=== PATIENT | female | born 1940 | race Caucasian/White ===

== ENCOUNTER → 2017-05-01 | Outpatient (CLI) | payer OTHER | END | disposition home or self-care (01) | LOC: C.PAPS 15:39 | PROVIDERS: ATTEND Obstetrics & Gynecology | DX: Z12.4 Encounter for screening for malignant neoplasm of cervix (principal) ==

== ENCOUNTER 2020-09-29 06:57 | Observation (INO) ==
--- NOTE | 2020-09-16 08:30 | PAT Medication Instructions ---
Medication Instructions Date of Service September 16, 2020 Home Medications estradiol [Vagifem] 10 mcg VAGINAL UD levothyroxine 75 mcg PO QAM lisinopril-hydrochlorothiazide 1 tab PO QAM naproxen sodium [Aleve] 220 mg PO BID PRN ASK your surgeon for instructions estradiol [Vagifem] 10 mcg VAGINAL UD naproxen sodium [Aleve] 220 mg PO BID PRN DO NOT take the morning of surgery lisinopril-hydrochlorothiazide 1 tab PO QAM Take morning of surgery With a small sip of water, OTHERWISE NOTHING TO EAT OR DRINK AFTER MIDNIGHT: levothyroxine 75 mcg PO QAM Other Notes If you have any questions please call us at [phone] or [phone] or [phone] or [phone]
--- NOTE | 2020-09-16 15:02 | Anesthesiology Consultation ---
Date of Service September 16, 2020 Assessment & Plan (1) Encounter for pre-operative examination: Per assessment on 09/16: Travel screen negative. No known COVID-19 positive conta cts or current COVID-19 related symptoms. Surgeon arranging preop COVID testing. Awaiting results. Chart Review Chart Review: Acceptable Risk for Surgery (pending surgeon-ordered PCP clearance) and Patient seen in Pre Admission Testing Teaching & Discussion Pre-Anesthesia Teaching/Discussion Notes: Instructed NPO after midnight before surgery,except medications with 15 cc of water. Medication instructions provided according to the PAT guidelines. History Surgery Operation Date: 09/29/20 10:55 Proposed Procedures p Right Total Knee Arthroplasty - Tee Jacob MD Height/Weight Height: 5 ft 3 in Weight: 75.6 kg Allergies Allergy/AdvReac Type Severity Reaction Status Date / Time naproxen Allergy Mild Rash Verified 09/15/20 12:32 WASP Allergy Severe Anaphylaxis Uncoded 09/15/20 12:32 Medications Home Medications Medication Instructions Recorded Confirmed Last Taken estradiol [Vagifem] 10 mcg VAGINAL UD 09/15/20 09/15/20 Unknown levothyroxine 75 mcg PO QAM 09/15/20 09/15/20 Unknown lisinopril-hydrochlorothiazide 1 tab PO QAM 09/15/20 09/15/20 Unknown naproxen sodium [Aleve] 220 mg PO BID PRN 09/15/20 09/15/20 Unknown Past Medical History Medical History Carpal tunnel syndrome R > L (nighttime splint) CKD (chronic kidney disease) creatinine baseline 1.3 per PCP records Fatty liver History of benign ovarian tumor History of skin cancer Facial Hx of endometriosis Hx of gout Hypertension Hypothyroidism Osteoarthritis Prediabetes Exercise / Class Metabolic Activity II 4-5 Yardwork/Stairs/Walk up hill Past Family History Family History Other No family history of adverse response to anesthesia Past Surgical History Surgical History Fusion of spine Lumbar H/O toe surgery Great right toe joint replacement (+ hardware) H/O total hysterectomy History of cystoscopy History of flexible sigmoidoscopy History of tonsillectomy and adenoidectomy [place] teeth removed Past Anesthesia History No Hx of Anesthesia Complications and No Family Hx of Anesthesia Complications History of PONV No Hx of PONV and No Hx of Motion Sickness Social History Smoking Status: Never smoker Hx Alcohol Use: No substance use type: does not use Review of Systems Patient denies chest pain, shortness of breath, dyspnea on exertion, joint pain, reflux, cough, wheezing, palpitations. Physical Exam Vital Signs VITALS BP 133/81 P 59 TEMP 98.3 SP02 97%RA RESP 16 PHYSICAL Mildly decreased c-spine range of motion. Full TMJ range of motion. TMD 3 finger breaths Mallampati Score 1 Dentition: intact, +crown (side), lower left bridge Lungs: clear throughout to auscultation Cardiac: regular rate and rhythm, no murmurs noted Spine: normal Carotid arteries: negative bruit Extremities: no edema Testing Laboratory Results 09/16/20 15:10 09/16/20 15:10 PT 10.1 Seconds (9.0-12.0) 09/16/20 15:10 INR 1.0 (0.9-1.1) 09/16/20 15:10 APTT 24.0 Seconds (21.0-31.0) 09/16/20 15:10 Hemoglobin A1c 6.0 % (4.5-5.6) H 09/16/20 15:10 Urine Color Yellow 09/16/20 15:10 Urine Appearance Clear (Clear) 09/16/20 15:10 Urine pH 6.0 (4.5-7.5) 09/16/20 15:10 Ur Specific [place] 1.016 (1.000-1.030) 09/16/20 15:10 Urine Protein Negative (Negative) 09/16/20 15:10 Urine Glucose (UA) Negative (Negative) 09/16/20 15:10 Urine Ketones Negative (Negative) 09/16/20 15:10 Urine Nitrite Negative (Negative) 09/16/20 15:10 Ur Leukocyte Esterase Trace (Negative) H 09/16/20 15:10 Urine WBC (Auto) 5-10 /hpf (0-5) H 09/16/20 15:10 Urine RBC (Auto) 10-30 /hpf (0-4) H 09/16/20 15:10 U Hyaline Cast (Auto) 1-5 /lpf (0-5) 09/16/20 15:10 U Epithel Cells (Auto) >30 /lpf (0-5) H 09/16/20 15:10 Urine Bacteria (Auto) 1+ (Negative) H 09/16/20 15:10 Blood Type AB Negative 09/16/20 15:10 Antibody Screen NEGATIVE 09/16/20 15:10 09/16/20 GFR 36.5 *Per verbal from Dr. Tinoco, known hx of CKD with baseline creatinine 1.3 per review of most recent labs.* Electrocardiogram Date: 09/16/20 Findings: + SB @ (58) Chest X-Ray Date: 09/16/20 FINDINGS: No pneumothorax. No pleural effusions. The lungs are clear. The heart is normal in size. Mild calcified plaque within the aortic knob. Chronic right AC joint separation. IMPRESSION: No acute process.
[2020-09-16 15:50] LABS: Basophils # (auto) 0.04 K/uL (0-0.2); Basophils % (auto) 0.5 %; Eosinophils # (auto) 0.42 K/uL (0-0.5); Eosinophils % (auto) 5.5 %; Hematocrit (blood only) 38.9 % (37-47); Hemoglobin 13.8 g/dL (12.0-16.0); Immature Granulocytes # (auto) 0.01 K/uL (0.00-0.02); Immature Granulocytes % (auto) 0.1 %; Lymphocytes # (auto) 2.05 K/uL (1.2-3.4); Mean Corpuscular Hemoglobin 32.9 pg (25-34); Mean Corpuscular Hgb Conc 35.5 g/dL (32-36); Mean Corpuscular Volume 92.6 fL (80-100); Mean Platelet Volume 9.6 fL (7.4-10.4); Monocytes # (auto) 0.84 K/uL (0.11-0.59); Monocytes % (auto) 11.1 %; Neutrophils # (auto) 4.22 K/uL (1.4-6.5); Neutrophils % (auto) 55.8 %; Platelet Count 351 K/uL (130-400); RDW Coefficient of Variation 13.1 % (11.5-14.5); RDW Standard Deviation 44.5 fL (36.4-46.3); White Blood Count 7.58 K/uL (4.8-10.8)
--- NOTE | 2020-09-16 15:51 | XRay Report ---
XR chest Pre-admission PA/Lat HISTORY: Preop. COMPARISON: None. FINDINGS: No pneumothorax. No pleural effusions. The lungs are clear. The heart is normal in size. Mi ld calcified plaque within the aortic knob. Chronic right AC joint separation. IMPRESSION: No acute process. ACT 112: Negative or not required by law. Electronically signed by: Danny Levine M.D. 09/16/2020 3:50 PM
[2020-09-16 16:01] LABS: Partial Thromboplastin Ratio 0.9; Prothrombin Time 10.1 Seconds (9.0-12.0)
[2020-09-16 16:02] LABS: Appearance Urine Clear (Clear); Bacteria Urine Automated 1+ (Negative); Bilirubin Urine Negative (Negative); Blood Urine 1+ (Negative); Color Urine Yellow; Epithelial Cell Urine Auto >30 /lpf (0-5); Glucose Urine UA Negative (Negative); Ketones Urine Negative (Negative); Leukocyte Esterase Urine Trace (Negative); Nitrite Urine Negative (Negative); Protein Urine Negative (Negative); Specific Gravity Urine 1.016 (1.000-1.030); Urobilinogen Urine Negative (Negative)
[2020-09-16 16:07] LABS: BUN Creatinine Ratio 23.9 (10-20); Calcium 9.7 mg/dl (8.5-10.1); Creatinine Clr Calc Pharmacy 32.7 ml/min; Est GFR (African American) 42.3; Est GFR (Non-African American) 36.5; Potassium 3.7 mmol/L (3.5-5.1)
--- NOTE | 2020-09-16 16:58 | Electrocardiogram Report ---
Test Reason : Blood Pressure : / mmHG Vent. Rate : 058 BPM Atrial Rate : 058 BPM P-R Int : 186 ms QRS Dur : 084 ms QT Int : 448 ms P-R-T Axes : 030 055 061 degrees QTc Int : 439 ms Sinus bradycardia Otherwise normal ECG No previous ECGs available Confirmed by Angel Horn ([id number]) on 09/16/2020 4:58:41 PM Referred By: Tee Jacob Confirmed By:Saud Horn
[2020-09-17 07:46] LABS: Estimated Average Glucose 126 mg/dl
--- NOTE | 2020-09-23 17:08 | History & Physical Report ---
Date of Service September 23, 2020 Assessment & Plan (1) Right knee DJD: Postoperative prescriptions for Percocet and Coumadin will be provided at discharge from the hospital. Anticipate discharge to home with home health services. Preoperative lab work, EKG, and chest x-ray have been ordered. Medical clearance has been requested from her PCP Dr. Tinoco. The patient is aware of the COVID-19 risks associated with surgery. She is currently asymptomatic of any COVID-19 symptoms. She will obtain nasal swab testing 1 week prior to surgery. PDMP was checked, and there are no concerning findings. The patient does have access to a cane and walker already. Followup appointment has been made for staple removal on 10/14/2020 at 1:30 p.m. History of Present Illness Chief Complaint: Right knee pain Primary Care Provider: Chivo Tinoco This 80-year-old female presents for her preoperative history and physical. She is scheduled to undergo a right knee total knee arthroplasty on 09/29/2020. The patient has a longstanding history of bilateral knee pain, right greater than left. No specific trauma. Pain is worse with weightbearing. It is affecting her ADLs. She has used oral anti-inflammatories as well as viscosupplementation injection and activity modification without lasting improvement. She does get night pain. Denies any catching or locking. No buckling. No numbness or tingling. Occasional mild knee effusions. She notes mild loss of motion. Allergies Allergy/AdvReac Type Severity Reaction Status Date / Time naproxen Allergy Mild Rash Verified 09/15/20 12:32 WASP Allergy Severe Anaphylaxis Uncoded 09/15/20 12:32 Home Medications Medication Instructions Recorded Confirmed Type estradiol [Vagifem] 10 mcg VAGINAL UD 09/15/20 09/15/20 History levothyroxine 75 mcg PO QAM 09/15/20 09/15/20 History lisinopril-hydrochlorothiazide 1 tab PO QAM 09/15/20 09/15/20 History naproxen sodium [Aleve] 220 mg PO BID PRN 09/15/20 09/15/20 History Past Med/Surg History Medical History Carpal tunnel syndrome R > L (nighttime splint) CKD (chronic kidney disease) creatinine baseline 1.3 per PCP records Fatty liver History of benign ovarian tumor History of skin cancer Facial Hx of endometriosis Hx of gout Hypertension Hypothyroidism Osteoarthritis Prediabetes Surgical History Fusion of spine Lumbar H/O toe surgery Great right toe joint replacement (+ hardware) H/O total hysterectomy History of cystoscopy History of flexible sigmoidoscopy History of tonsillectomy and adenoidectomy [place] teeth removed Family History (Updated 09/23/20 @ 17:10 by Sandeep Loo PA-C) Other Cancer Heart disease No family history of adverse response to anesthesia Stroke Social History (Updated 09/23/20 @ 17:10 by Sandeep Loo PA-C) Smoking Status: Never smoker Second Hand Exposure: No; Hx Alcohol Use: No Preferred Language: Slovak Product Support Sales Representative Required: No Beliefs That Will Affect Care: None Current Living Situation: Spouse current occupational status: retired Feels Safe at Home: Yes Assistive Devices: Cane and Glasses Review of Systems Review of Systems: All systems reviewed & are unremarkable except as noted in HPI & below A total of 10 systems were reviewed. Physical Exam Physical Exam: Vitals: Height 5 feet 3 inches, weight 75.6kg. General: Well-developed, well-nourished, elderly, white female in no acute distress. Sitting on a bed. Alert and oriented. Skin: Warm and dry with good turgor. No rashes or lesions. No ecchymosis or erythema. No intra-articular effusion today. HEENT: Normocephalic, atraumatic. Eyes: PERRLA, EOMI. Nares patent bilaterally without turbinate enlargement. Oropharynx exam deferred due to COVID precautions. Heart: RRR, no MGR. Lungs: Clear to auscultation bilaterally, no crackles, rhonchi or wheezing, good air movement. Abdomen: Bowel sounds present x4, soft, nontender. No organomegaly. No masses. Musculoskeletal: Right knee evaluation reveals a varus alignment. She lacks about 3-4 degrees of terminal extension. Flexion to 100 degrees. Strength is 5/5 with fair quad tone. Stable collateral ligaments. No defect in the patellar tendon or quadriceps tendon. She has discomfort with palpation over the medial joint line of the right knee. No pain laterally at this time. Ambulates with a slightly antalgic gait. Neurologic: Gross sensation is intact across both lower extremities by soft touch. Peripheral pulses are 2+. Results & Data Results & Data ([facility]) Diagnostic Findings Radiographic imaging previously obtained shows Right knee advanced osteoarthritis with medial compartment collapse. Periarticular osteophytes and subchondral sclerosis is also evident.
--- NOTE | 2020-09-29 06:53 | History & Physical Bridge Note ---
Date of Service September 29, 2020 History & Physical Bridge Note I have examined the patient, reviewed the History & Physical and in the interval since the performance of the History & Physical I have noted the following changes of clinical significance:consent obtained/site verified/covid screen negative. no changes noted
[~2020-09-29 06:57] MED LIST: LR 500ML BOLUS, THEN 15ML/HR IV SCH; LR 60ML/HR IV SCH; ROPIVACAINE 0.5% HCL/PF 150 MG, BUPIVACAINE 0.75% MPF 20 ML, EPINEPHrine 0.15 MG, Ketor... INFIL SCH; TRANEXAMIC ACID 1,000 MG **IV Pre-op IV SCH; ceFAZolin 2000MG 2,000 MG/15 ML SYR IV SCH
[2020-09-29] MEDS ORDERED: EPINEPHrine INJ 1 MG/ML AMP ONE (07:25)
[2020-09-29] MEDS ORDERED: BUPIVACAINE 0.5 % 5 MG/1 ML PF 10ML VIAL ONE (07:25)
[2020-09-29] MEDS ORDERED: DEXAMETHASONE SOD INJ 4 MG/ML VIAL ONE (07:25)
[2020-09-29] MEDS ORDERED: BUPIVACAINE 0.25% 30 ML VIAL ONE (07:25)
[2020-09-29] MEDS ORDERED: PROPOFOL IV EMULSION 10 MG/ML 20 ML VIAL IV ONE ×2 (07:35→10:06)
[2020-09-29] MEDS ORDERED: LIDOCAINE HCL 2% 2 ML VIAL/AMP(20MG/ML) INFIL ONE (07:35)
[2020-09-29] MEDS ORDERED: MIDAZOLAM HCL 1 MG/ML 2ML VIAL ONE (07:36)
[2020-09-29] MEDS ORDERED: fentaNYL citrate 100 MCG/2 ML VIAL IV PRN (08:33)
[2020-09-29] MEDS ORDERED: ePHEDrine sulfate 50 MG/ML AMP IV PRN (08:33)
[2020-09-29] MEDS ORDERED: ONDANSETRON INJ 2 MG/ML 2 ML VIAL IV PRN ×2 (08:33→12:40)
[2020-09-29] MEDS ORDERED: PROMETHAZINE HCL 6.25 MG in SODIUM CHLORIDE 0.9% 50 ML IV PRN (08:33)
[2020-09-29] MEDS ORDERED: ATROPINE SULFATE 0.1 MG/ML 10ML SYR IV PRN (08:33)
[2020-09-29] MEDS ORDERED: fentaNYL citrate 100 MCG/2 ML VIAL ONE (08:36)
[2020-09-29] MEDS ORDERED: ORTHO JOINT ANESTHETIC ONE (08:57)
--- NOTE | 2020-09-29 10:45 | Post Operative Brief Note ---
Immediate Post Op Note v1 Date of Surgery September 29, 2020 Pre & Post Diagnosis Operation Date: 09/29/20 08:50 Pre-Op Diagnosis: Right Knee Osteoarthritis Post-Op Diagnosis: Right Knee Osteoarthritis I identified the patient and participated in the time-out.: Yes Procedure Operation Date: 09/29/20 08:50 Actual Procedures p Right Total Knee Arthroplasty, Cemented(Right) - Tee Jacob MD Surgeon Tee Jacob MD Efficiency Clerk wendy/sravani Estimated Blood Loss 25 Findings Consistent with Post-Op Diagnosis
--- NOTE | 2020-09-29 10:57 | Operative Report ---
Post Operative Report Pre & Post Diagnosis Operation Date: 09/29/20 08:50 Pre-Op Diagnosis: Right Knee Osteoarthritis Post-Op Diagnosis: Right Knee Osteoarthritis I identified the patient and participated in the time-out.: Yes Procedure Operation Date: 09/29/20 08:50 Actual Procedures p Right Total Knee Arthroplasty, Cemented(Right) - Tee Jacob MD Surgeon EMMA Jacob MD Creative Manager wendy/sravani PERLA Estimated Blood Loss 25 Findings Consistent with Post-Op Diagnosis Specimens see operative report Drains none Complications none Disposition Accompanied Patient To Recovery: Yes Disposition: Recovery Room Indications This 80-year-old female presented to the office with complaints of persisting right knee pain. She had tried conservative care measures without improvement. She elected to proceed with surgical intervention after being educated about potential risks and outcomes. Preoperative imaging was obtained. Description of Procedure Patient was administered a regional block and spinal anesthetic and then taken to the operating room where she was given sedation. She was prepped and draped in the usual sterile fashion. Please see Dr. Jacob's operative report for specifics of the procedure. I was present for the entire case from initial patient positioning through final wound closure. Assistance was provided in tissue retraction, hemostasis, trial implant placement, final implant placement, and final wound closure. Patient was taken to the recovery room in satisfactory condition. I attest to the content of the Intraoperative Record and any orders documented therein. Any exceptions are noted below.
--- NOTE | 2020-09-29 10:58 | Operative Report ---
Post Operative Report Pre & Post Diagnosis Operation Date: 09/29/20 08:50 Pre-Op Diagnosis: Right Knee Osteoarthritis Post-Op Diagnosis: Right Knee Osteoarthritis I identified the patient and participated in the time-out.: Yes Procedure Operation Date: 09/29/20 08:50 Actual Procedures p Right Total Knee Arthroplasty, Cemented(Right) - Tee Jacob MD Surgeon Tee Jacob MD Echocardiographer wendy/sravani PERLA Estimated Blood Loss 25 Findings Consistent with Post-Op Diagnosis Specimens bone cuts Anesthesia Type MAC Spinal Regional Complications none Disposition Accompanied Patient To Recovery: Yes Disposition: Recovery Room Description of Procedure As per 's note, I assisted in prepping and draping, instruments handling, certain parts of the procedure and wound closure I attest to the content of the Intraoperative Record and any orders documented therein. Any exceptions are noted below.
--- NOTE | 2020-09-29 11:23 | XRay Report ---
XR knee RT 1 or 2V routine CLINICAL HISTORY: S/P R TKA COMPARISON: 09/06/2020 DISCUSSION: There are postsurgical changes of a total right knee arthroplasty and patellar resurfacin g. There are overlying skin dorothy present. There is gas present within the soft tissues consistent with recent surgery. IMPRESSION: Postsurgical changes of a total right knee arthroplasty and patellar resurfacing ACT 112: Negative or not required by law. Electronically signed by: Ja Brooks M.D. 09/29/2020 11:22 AM
--- NOTE | 2020-09-29 12:22 | Anesthesiology Progress Note ---
Date of Service September 29, 2020 Anesthesia Post Procedure Vital Signs Vital Signs: Temp Pulse Pulse Resp BP Pulse Ox 09/29/20 12:10 36.4 C L 74 15 134/71 93 09/29/20 12:00 36.4 C L 70 13 128/70 94 09/29/20 11:50 36.4 C L 72 13 125/64 93 09/29/20 11:40 74 15 118/73 95 09/29/20 11:30 83 25 H 129/73 96 09/29/20 11:20 81 10 L 130/79 96 09/29/20 11:10 75 12 131/65 96 09/29/20 11:00 85 15 132/70 95 09/29/20 10:53 36.0 C L 88 16 133/65 98 09/29/20 10:40 74 15 118/73 95 09/29/20 08:02 36.5 C 65 20 186/99 H 99 09/29/20 07:25 36.8 C 72 20 160/82 H 98 Transfer of Care Handoff Completed per policy Notes Mental Status: alert / awake / arousable Patient Amnestic to Procedure: Yes Nausea / Vomiting: adequately controlled Pain: adequately controlled Airway Patency, RR, SpO2: stable & adequate BP & HR: stable & adequate Hydration State: stable & adequate Neuraxial Anesthesia: was administered and sensory block is resolving Anesthetic Complications: no major complications apparent
[2020-09-29] MEDS ORDERED: METOCLOPRAMIDE HCL INJ 5 MG/ML 2 ML VIAL IV PRN (12:40)
[2020-09-29] MEDS ORDERED: ALUMINUM/MAGNESIUM SUSP 30 ML UDC PO PRN (12:40)
[2020-09-29] MEDS ORDERED: SODIUM CHLORIDE 0.9% 1000ML 1,000 ML IV SCH (12:40)
[2020-09-29] MEDS ORDERED: HYDROmorphone INJ 0.5 MG/0.5 ML SYR IV PRN (12:40)
[2020-09-29] MEDS ORDERED: bisacodyL 10 MG SUPP PR PRN (12:40)
[2020-09-29] MEDS ORDERED: MAGNESIUM HYDROXIDE SUSP 30 ML UDC PO PRN (12:40)
[2020-09-29] MEDS ORDERED: oxyCODONE HCL IR 5 MG TAB (IMMEDIATE RELEASE) PO PRN (12:40)
[2020-09-29] MEDS ORDERED: diphenhydrAMINE 50 MG/ML VIAL IV PRN (12:40)
[2020-09-29] MEDS ORDERED: NALOXONE HCL 0.4 MG/1 ML VIAL/CARP IV PRN (12:40)
--- NOTE | 2020-09-29 13:18 | Operative Report (OR) ---
DATE OF OPERATION: 09/29/2020 SURGEON: Tee Jacob MD. LOW VISION THERAPIST: Lorri, fellow. SECOND URANIUM PROCESSING SUPERVISOR: Sandeep Loo PA-C. No med students. PREOPERATIVE DIAGNOSES: Osteoarthritis, right knee with varus deformity. POSTOPERATIVE DIAGNOSES: Osteoarthritis, right knee with varus deformity. OPERATION PERFORMED: Cemented right total knee replacement. INTRAOPERATIVE FINDINGS: Revealed grade 4 disease in the medial half of the trochlea, medial compartment and medial half of the patella. SUMMARY OF IMPLANTS: Size 2 right posterior cruciate substituting femur, size 2 mobile bearing tray, tibia size 2 x 12.5 insert posterior cruciate substituting tibia and 35 patella, 2 bags of Palacos G cement. PERIOPERATIVE SITUATION: Medically cleared female with intractable knee pain, has failed conservative management. At this point in time, wants to proceed with surgical treatment. She has end-stage disease by physical exam and x-ray. DESCRIPTION OF PROCEDURE: The patient was appropriately identified, site verified, consent verified. Antibiotics confirmed as being given. Right lower extremity was prepped and draped in usual routine fashion. Tourniquet inflated to 275 mmHg after exsanguination of limb with a rubber Esmarch bandage for a total of 57 minutes. Midline exposure utilized. Parapatellar arthrotomy performed. Synovectomy completed. Patella everted. Grade 4 disease noted in the medial trochlea, medial patella and medial compartment of the femur and tibia. Menisci were excised. PCL was then identified. A centering hole made on the femur. Cruciates resected, tibia subluxated. Remaining menisci resected. The distal femur resected 14 mm, proximal tibia 4 mm, the extension gap was excellent. The femur was sized between a 2.5 and a 2, was measured 2.5, cut 2, there was no notching. The flexion gap was slightly tight medially. It was adjusted with capsular release and it was excellent. The box cut was then made and size 2 fit well. It was adjusted for a little bit of impingement anteriorly and then it fit extremely well. Tibia was subluxated, broached and reamed to a size 2 and a 10 and a 12.5 mm spacer trialed. The 12.5 gave a little bit better mid range stability, so that was utilized. There was no loss of extension. The patella was everted, resected leaving 15 mm and a 35 button drilled into position. It tracked well. The knee was then injected with Orthomix anteriorly and posteriorly and all trial implants were removed. The wound was irrigated with Betadine Pulsavac and then cemented in position, tibia, femur and patella in that order. Once that was done after 12 minutes, the tourniquet was deflated. Minor bleeding points were controlled with electrocautery. There was minimal bleeding, roughly 25 mL. After 14 minutes, the spacer was removed. The knee was irrigated one final time and then the permanent liner seated, the knee reduced and closed at 40 degrees of flexion using #2 Vicryl, 2-0 Vicryl and stainless steel clips. Appropriate dressing applied. The patient was transferred to recovery room in satisfactory condition having tolerated the procedure well. I attest to the content of the Intraoperative Record and any orders documented therein. Any exception s are noted below.
--- NOTE | 2020-09-29 13:22 | Progress Notes ---
DATE: 09/29/2020 Postop check status post right total knee replacement. The patient is resting comfortably in bed. She is in the PACU. She denies chest pain, shortness of breath, fever, chills, nausea, vomiting or headache. She is awake and alert. Her lower extremity CMS exam is limited by her spinal. Wound dressing is clean, dry and intact. X-RAYS: AP and lateral of the knee reveal an excellent total knee replacement. ASSESSMENT: Doing well. Continue postoperative care pathway. Discharge to home tomorrow.
--- NOTE | 2020-09-29 13:29 | Discharge Summary (DS) ---
Date of discharge potential is 09/30/2020 if she does well overnight. CHIEF COMPLAINT: Right knee pain. HISTORY OF PRESENT ILLNESS: Underwent elective right total knee replacement. Hospital course has been uneventful to date. Postop x-rays look excellent. PAST MEDICAL HISTORY: Remarkable for carpal tunnel surgery, chronic kidney disease, fatty liver, benign ovarian tumor, history of skin cancer, endometriosis, gout, hypertension, hypothyroidism, osteoarthritis, prediabetes. PAST SURGICAL HISTORY: Reveals a lumbar fusion, great toe surgery, hysterectomy, cystoscopy, sigmoidoscopy, adenoidectomy, tonsillectomy, wisdom teeth surgery. FAMILY HISTORY: Reveals cancer, heart disease, stroke. SOCIAL HISTORY: Reveals she is . Does not smoke, does not drink. Lives with her spouse. She is retired. Feels safe at home. Uses a cane and glasses. REVIEW OF SYSTEMS: Reveals no chest pain, shortness of breath, fever, chills, nausea, vomiting or headache. MEDICATION LIST: As noted. Her home medications include Vagifem, levothyroxine, lisinopril/hydrochlorothiazide, and nsaid.. ALLERGIES: SHE DOES REVEAL AN ALLERGY TO NAPROSYN, but for some reason she can take Aleve just fine. SHE IS ALLERGIC TO WASPS WELL. Postoperative x-rays look excellent, AP and lateral of the right knee. ASSESSMENT: Doing well status post right knee replacement. Home tomorrow. Case management is involved. Mobilize as soon as possible. AVTAR
[2020-09-29] MEDS: ORTHO WARFARIN NOMOGRAM SCH (14:28)
[2020-09-29] MEDS ORDERED: WARFARIN SOD 5 MG TAB PO ONE (14:30)
[2020-09-29] MEDS: ACETAMINOPHEN 500 MG TAB PO SCH ×2 (14:41→20:36)
[2020-09-29] MEDS: FERROUS GLUCONATE 324 MG TAB PO SCH (16:25)
[2020-09-29] MEDS: ASCORBIC ACID 500 MG TAB PO SCH (16:25)
[2020-09-29] MEDS: ceFAZolin 2000MG 2,000 MG/15 ML SYR IV SCH (16:25)
[2020-09-29] MEDS ORDERED: TRANEXAMIC ACID / 0.7% NACL 1,000 MG/100 ML BAG IV SCH (17:07)
[2020-09-29] MEDS: DOCUSATE SODIUM 100 MG CAP PO SCH (20:36)
[2020-09-29] MEDS ORDERED: SENNA 8.6 MG TAB PO SCH (21:00)
[2020-09-30] MEDS: ceFAZolin 2000MG 2,000 MG/15 ML SYR IV SCH (02:15)
[2020-09-30] MEDS: ACETAMINOPHEN 500 MG TAB PO SCH (05:22)
[2020-09-30] MEDS ORDERED: LEVOTHYROXINE SODIUM 75 MCG TABLET PO SCH (06:30)
[2020-09-30 06:44] LABS: Hematocrit (blood only) 36.2 % (37-47); Hemoglobin 12.5 g/dL (12.0-16.0); Mean Corpuscular Hgb Conc 34.5 g/dL (32-36); Mean Corpuscular Volume 92.6 fL (80-100); Mean Platelet Volume 9.7 fL (7.4-10.4); Platelet Count 283 K/uL (130-400); RDW Coefficient of Variation 13.2 % (11.5-14.5); RDW Standard Deviation 44.6 fL (36.4-46.3); Red Blood Count 3.91 M/uL (4.2-5.4); White Blood Count 16.74 K/uL (4.8-10.8)
[2020-09-30 06:54] LABS: INR 1.1 (0.9-1.1); Prothrombin Time 10.9 Seconds (9.0-12.0)
[2020-09-30 07:10] LABS: BUN Creatinine Ratio 21.8 (10-20); Calcium 9.2 mg/dl (8.5-10.1); Est GFR (African American) 35.1; Est GFR (Non-African American) 30.3
[2020-09-30] MEDS: ORTHO WARFARIN NOMOGRAM SCH (07:30)
[2020-09-30] MEDS ORDERED: WARFARIN SOD 5 MG TAB PO ONE (08:00)
[2020-09-30] MEDS ORDERED: dexAMETHasone 10 MG in SYRINGE 0 ML IV SCH (08:00)
--- NOTE | 2020-09-30 08:12 | Progress Notes ---
DATE: 09/30/2020 SUBJECTIVE: Postop day #1 status post right total knee replacement. The patient is resting comfortably in bed. Denies chest pain, shortness of breath, fever, chills, nausea, vomiting or headache. OBJECTIVE: VITAL SIGNS: Stable. She is afebrile. EXTREMITIES: Wound dressing clean, dry and intact. Calves are nontender. NEUROVASCULAR CHECK: Femoral sciatic nerve is normal. ABDOMEN: Soft, nontender. LABORATORY WORK: Hematocrit stable at 36.2. INR pending. Electrolytes pending. ASSESSMENT: Doing well status post right total knee replacement. Plan is to discharge today after PT, OT. Give Coumadin dose today per nomogram prior to discharge. If INR is less than 1.5, discharge on 4 mg daily. Check INR on Sunday. Dressing changed today by PA prior to discharge.
--- NOTE | 2020-09-30 08:19 | Anesthesiology Progress Note ---
Date of Service September 30, 2020 Anesthesia Post Procedure Vital Signs Vital Signs: Temp Pulse Pulse Resp BP BP Pulse Ox 09/30/20 06:28 36.6 C 57 L 16 127/79 95 09/30/20 02:00 36.6 C 76 18 101/60 97 09/29/20 22:10 36.7 C 77 16 135/73 94 09/29/20 19:35 36.6 C 82 16 121/71 95 09/29/20 13:21 36.6 C 81 16 145/90 H 97 09/29/20 12:30 36.4 C L 73 16 131/75 97 09/29/20 12:10 36.4 C L 74 15 134/71 93 09/29/20 12:00 36.4 C L 70 13 128/70 94 09/29/20 11:50 36.4 C L 72 13 125/64 93 09/29/20 11:40 74 15 118/73 95 09/29/20 11:30 83 25 H 129/73 96 09/29/20 11:20 81 10 L 130/79 96 09/29/20 11:10 75 12 131/65 96 09/29/20 11:00 85 15 132/70 95 09/29/20 10:53 36.0 C L 88 16 133/65 98 09/29/20 10:40 74 15 118/73 95 Pain Intensity Right Leg: Pain Intensity: 3 Notes Mental Status: alert / awake / arousable Nausea / Vomiting: adequately controlled Pain: adequately controlled Airway Patency, RR, SpO2: stable & adequate BP & HR: stable & adequate Hydration State: stable & adequate Neuraxial Anesthesia: was administered and sensory block resolved Anesthetic Complications: no major complications apparent and Pt Satisfied with anesthetic care
[2020-09-30] MEDS: FERROUS GLUCONATE 324 MG TAB PO SCH (08:54)
[2020-09-30] MEDS: ASCORBIC ACID 500 MG TAB PO SCH (08:55)
[2020-09-30] MEDS: DOCUSATE SODIUM 100 MG CAP PO SCH (08:55)
[2020-09-30] MEDS ORDERED: LISINOPRIL/HCTZ 20/12.5MG 1 TAB TAB PO SCH (09:00)
[2020-09-30] MEDS ORDERED: MULTIVITAMIN TAB PO SCH (09:00)
--- NOTE | 2020-09-30 09:44 | Orthopedic Progress Note ---
Date of Service September 30, 2020 Assessment & Plan (1) Status post total right knee replacement using cement: Patient's dressing was changed by me. POLLO hose was reapplied. She will leave this on until Sunday, and then have it changed as needed by home nursing. Patient will perform her home exercise program to maintain range of motion. Prescriptions for Percocet and Coumadin were sent to her pharmacy. She will continue with Coumadin 4 mg daily through Sunday, and then have her INR checked on Sunday. Discontinue the knee immobilizer on Sunday. She patient was reminded to use her walker for ambulation. Follow-up in the office in 2 weeks as scheduled for staple removal. She was encouraged to increase her fluid intake and maintain hydration. I suspect her BUN/creatinine will normalize with increased fluids. Written discharge instructions were provided. Admission and Anticipated Discharge Date Admission Date: September 29, 2020 Subjective This female patient was evaluated in her room this morning. She was actually walking in the [place] upon initial presentation. She was ambulating quite well using her walker. She denies any chest pain, shortness of breath, nausea, vomiting, or abdominal pain. She states her pain is currently 0/10 while ambulating. She feels ready for discharge and would like to leave before lunch. No other complaints. Review of Systems Review of Systems: All systems reviewed & are unremarkable except as noted in HPI & below and Other unchanged from yesterday. Physical Exam Physical Exam: Patient's external dressings are dry. Upon removal, she has scant dried blood at the site of her knee incision. There is no erythema or warmth. No active bleeding. Minimal edema. No ecchymosis. She has intact motor function to the hip, knee, and ankle. She is able to set her quad and perform a straight leg raise. Full extension. Flexion easily to 50 degrees. Neurologic evaluation shows intact sensation throughout the right leg pulses are 2+. Results & Data ([facility]) Vital Signs (Past 12 Hours) Vital Signs Temp Pulse Resp BP BP Pulse Ox 09/30/20 09:10 36.6 C 57 L 16 135/73 127/79 95 09/30/20 06:28 36.6 C 57 L 16 127/79 95 09/30/20 02:00 36.6 C 76 18 101/60 97 09/29/20 22:10 36.7 C 77 16 135/73 94 Laboratory Results INR today is 1.1. H&H is 12.5 and 36.2. WBCs are elevated at 16.7. This is likely from demargination. PRP is relatively unremarkable. BUN and creatinine are slightly elevated at 35 and 1.6. Diagnostic Findings
[2020-09-30] MEDS ORDERED: WARFARIN SOD 5 MG TAB PO SCH (16:00)
== END 2020-09-30 12:24 | disposition home health service (06) ==
LOC: 3E 06:57 → ASU 06:57